=== PATIENT | male | born 1965 | race Caucasian/White ===

== ENCOUNTER 2017-09-09 17:50 | Emergency (ER) | payer BC, OTHER ==
[2017-09-09 18:27] LABS: BASO # 0.1 10^3/uL (0.0-0.2); BASO % 0.8 % (0.0-1.0); EOS # 0.2 10^3/uL (0.0-0.50); EOS % 2.9 % (0.0-3.0); HEMOGLOBIN 17.6 g/dl (14.0-18.0); IMMATURE GRANULOCYTE % 0.3 % (0-0); LYMPH # 2.4 10^3/uL (1.5-4.5); LYMPH % 37.4 % (24.0-44.0); MEAN CORPUSCULAR HEMOGLOBIN 30.7 pg (27.0-33.0); MEAN CORPUSCULAR HGB CONC 34.5 g/dl (32.0-36.5); MEAN CORPUSCULAR VOLUME 88.9 fl (80.0-96.0); MONO # 0.6 10^3/uL (0.0-0.8); MONO % 9.2 % (0.0-5.0); NEUTROPHILS # 3.2 10^3/uL (1.8-7.7); NEUTROPHILS % 49.4 % (36.0-66.0); PLATELET COUNT, AUTOMATED 205 10^3/uL (150-450); RED BLOOD COUNT 5.74 10^6/uL (4.30-6.10); RED CELL DISTRIBUTION WIDTH 11.9 % (11.5-14.5); WHITE BLOOD COUNT 6.5 10^3/uL (4.0-10.0)
[2017-09-09 18:42] LABS: INR 0.85; PROTHROMBIN TIME 11.7 SECONDS (12.4-14.5)
[2017-09-09 18:43] LABS: PARTIAL THROMBOPLASTIN TIME 26.9 SECONDS (26.8-37.9)
[2017-09-09 18:53] LABS: NT-PRO BNP 29 PG/ML (<125)
[2017-09-09 18:55] LABS: ALBUMIN 4.3 GM/DL (3.2-5.2); ALBUMIN/GLOBULIN RATIO 1.48 (1.00-1.93); ALKALINE PHOSPHATASE 67 U/L (45-117); ALT/SGPT 31 U/L (12-78); ANION GAP 6 MEQ/L (8-16); AST/SGOT 18 U/L (7-37); BILIRUBIN,DIRECT 0.1 MG/DL (0.0-0.2); BILIRUBIN,TOTAL 0.5 MG/DL (0.2-1.0); BLOOD UREA NITROGEN 17 MG/DL (7-18); CALCIUM LEVEL 8.4 MG/DL (8.5-10.1); CARBON DIOXIDE LEVEL 28 MEQ/L (21-32); CHLORIDE LEVEL 107 MEQ/L (98-107); CPK CREATINE PHOSPHOKINASE 149 U/L (39-308); FREE T4 0.96 NG/DL (0.76-1.46); GLOMERULAR FILTRATION RATE > 60.0 (>56); GLUCOSE, FASTING 125 MG/DL (70-100); LIPASE 212 U/L (73-393); POTASSIUM SERUM 3.9 MEQ/L (3.5-5.1); SODIUM LEVEL 141 MEQ/L (136-145); TOTAL PROTEIN 7.2 GM/DL (6.4-8.2); TROPONIN I < 0.02 NG/ML (< 0.10)
[2017-09-09 19:01] LABS: CK-MB VALUE MASS 2.1 NG/ML (0.0-3.6)
[2017-09-09] MEDS ORDERED: ISOVUE-370 76% 100ML VIAL (Q9967) As Ordered (19:51)
[2017-09-09] MEDS: LABETALOL HCL 100 MG/20 ML VIAL IV ×2 (20:05→21:16)
[2017-09-09] MEDS: OMEPRAZOLE 20 MG CAP PO (22:03)
[2017-09-09] MEDS: LISINOPRIL 10 MG TAB PO (22:03)
== END 2017-09-09 23:00 | disposition home or self-care (01) ==
LOC: M ED 17:50
DX: I10 Essential (primary) hypertension (principal); K44.9 Diaphragmatic hernia without obstruction or gangrene; Z82.49 Family history of ischemic heart disease and other diseases of the circulatory system
CPT/HCPCS: Q9967

== ENCOUNTER 2019-03-09 08:37 | Emergency (ER) | payer OTHER, BC ==
[~2019-03-09] VITALS: Ht 180.3 cm; Wt 109.1 kg
[~2019-03-09 08:37] MED LIST: LISI10TA4 PO; OMEP40CA2 PO
[2019-03-09 08:38] VITALS: BP 162/96
[2019-03-09] MEDS ORDERED: NAPR-837 PO (09:14)
== END 2019-03-09 09:21 | disposition home or self-care (01) ==
LOC: M ED 08:37
DX: S76.311A Strain of muscle, fascia and tendon of the posterior muscle group at thigh level, right thigh, initial encounter (principal); X58.XXXA Exposure to other specified factors, initial encounter; Y92.89 Other specified places as the place of occurrence of the external cause; Y93.89 Activity, other specified; Y99.0 Civilian activity done for income or pay

== ENCOUNTER → 2021-05-15 | Outpatient (CLI) | payer OTHER, BC ==
[~2021-05-15] MED LIST changes: +LISI10TA22 PO; -LISI10TA4 PO; +NAPR-837 PO; -OMEP40CA2 PO; +OMEP40CA4 PO
--- NOTE | 2021-05-15 14:33 | REP ---
INDICATION: IMPINGEMENT SYNDROME OF LT SHOULDER. COMPARISON: None. TECHNIQUE: Neutral, internal rotation, external rotation, axillary and Y-view of the left shoulder FINDINGS: Blunting to the glenoid rim is appreciated along with osteophyte formation along the inferior margin of the humeral head. The subacromial space is normal. Very subtle cortical irregularity at the acromioclavicular joint identified. No periarticular calcifications or loose bodies noted. No evidence for acute fracture or dislocation. 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 <Electronically signed by Leif Lafleur > 05/15/21 [id number]
== END ==
LOC: M SOG 13:49
PROVIDERS: ATTEND Orthopaedic Surgery Sports Medicine
DX: M75.42 Impingement syndrome of left shoulder (principal)

== ENCOUNTER → 2024-03-19 | Outpatient (CLI) | payer BC | LOC: M RAD 09:50 | PROVIDERS: ATTEND Internal Medicine | DX: I82.432 Acute embolism and thrombosis of left popliteal vein (principal) ==

== ENCOUNTER 2024-03-31 09:13 | Emergency (ER) | payer BC ==
[~2024-03-31] VITALS: Ht 177.8 cm; Wt 105.5 kg
[2024-03-31] MEDS ORDERED: XARE15TA (09:22)
[2024-03-31] MEDS ORDERED: CYCL-707 (09:22)
[2024-03-31 10:41] LABS: BASO # 0.1 10^3/uL (0.0-0.2); EOS # 0.1 10^3/uL (0.0-0.5); EOS % 2.3 % (0.0-3.0); HEMATOCRIT 50.3 % (42.0-52.0); HEMOGLOBIN 17.5 g/dl (13.5-17.5); LYMPH # 1.5 10^3/uL (1.5-5.0); LYMPH % 26.7 % (24.0-44.0); MEAN CORPUSCULAR HEMOGLOBIN 32.3 pg (27.0-33.0); MEAN CORPUSCULAR HGB CONC 34.8 g/dl (32.0-36.5); MONO # 0.5 10^3/uL (0.0-0.8); MONO % 8.9 % (2.0-8.0); NEUTROPHILS # 3.5 10^3/uL (1.5-8.5); NEUTROPHILS % 60.6 % (36.0-66.0); PLATELET COUNT, AUTOMATED 204 10^3/uL (150-450); RED BLOOD COUNT 5.41 10^6/uL (4.30-6.10); WHITE BLOOD COUNT 5.7 10^3/uL (4.0-10.0)
[2024-03-31 10:59] VITALS: BP 177/90; TEMP 97.4; O2SAT 98
== END 2024-03-31 11:33 | disposition home or self-care (01) ==
LOC: M ED 09:13
DX: I82.401 Acute embolism and thrombosis of unspecified deep veins of right lower extremity (principal); R23.3 Spontaneous ecchymoses; M54.50 Low back pain, unspecified; F10.10 Alcohol abuse, uncomplicated; Z86.718 Personal history of other venous thrombosis and embolism; Z79.899 Other long term (current) drug therapy